=== PATIENT | male | born 2000 | race African-American/Black ===

== ENCOUNTER 2019-08-17 23:29 | Emergency (ER) | payer SELFPAY ==
[~2019-08-17] VITALS: Ht 180.3 cm; Wt 84.0 kg
[2019-08-17 23:39] VITALS: BP 148/90
== END 2019-08-18 00:55 | disposition left against medical advice (07) ==
LOC: ER 23:29
DX: R10.9 Unspecified abdominal pain (principal); Z53.21 Procedure and treatment not carried out due to patient leaving prior to being seen by health care provider

== ENCOUNTER 2019-08-18 09:38 | Emergency (ER) | payer SELFPAY ==
[2019-08-18] MEDS ORDERED: ONDANSETRON HCL 4MG/2ML INJ IV STA (10:36)
[2019-08-18 12:25] LABS: CHLORIDE 106 mEq/L (98-107)
[2019-08-18 12:30] LABS: BASOPHILS % 0.4 % (0.0-2.0); EOSINOPHILS % 0.3 % (0.0-5.0); HEMATOCRIT. 43.8 % (42.0-52.0); HEMOGLOBIN. 14.6 g/dL (14.0-18.0); LYMPHOCYTES % 12.5 % (20.0-50.0); MEAN CORPUSCULAR HEMOGLOBIN 29.8 pg (28.0-32.0); MEAN CORPUSCULAR VOLUME 89.3 fL (80.0-94.0); MEAN PLATELET VOLUME 9.5 fl (7.4-10.4); MONOCYTES % 4.9 % (2.0-8.0); NEUTROPHILS % 81.9 % (40.0-76.0); PLATELET 216 x1000/uL (130-400); RED CELL DISTRIBUTION WIDTH 13.3 % (11.6-14.6)
[2019-08-18 12:31] LABS: INR 1.1; PROTHROMBIN TIME 11.2 sec (9.6-11.0)
[2019-08-18 15:26] LABS: CLARITY URINE CLEAR (CLEAR); COLOR URINE YELLOW (YELLOW); KETONES URINE 1+ (NEGATIVE); LEUKOCYTE ESTERASE URINE NEGATIVE (NEGATIVE); NITRITE URINE NEGATIVE (NEGATIVE); OCCULT BLOOD URINE NEGATIVE (NEGATIVE); PH URINE 6.5 (4.5-8.0); PROTEIN URINE NEGATIVE (NEGATIVE)
[2019-08-18 16:23] VITALS: BP 121/69
== END 2019-08-18 16:41 | disposition home or self-care (01) ==
LOC: ER 09:38
DX: N20.0 Calculus of kidney (principal); F12.10 Cannabis abuse, uncomplicated
CPT/HCPCS: 36415; 74177; 80053; 81003; 83690; 85025; 85610; 96374; 99284; J2405; Z7610

== ENCOUNTER → 2019-08-18 | Emergency (ER) | payer SELFPAY ==
[~2019-08-18] MED LIST: IOHEXOL-300 100 ML BOTTLE ONE
== END | disposition left against medical advice (07) ==
LOC: ER 10:27
DX: Z53.21 Procedure and treatment not carried out due to patient leaving prior to being seen by health care provider (principal)
CPT/HCPCS: Q9967